=== PATIENT | female | born 2000 | race Caucasian/White ===

== ENCOUNTER → 2020-02-13 16:48 | Outpatient (CLI) | payer BC, SELFPAY ==
[2020-02-13 18:30] LABS: hCG Titer Quant., Serum < 1 mIU/mL (1-3)
[2020-02-13 18:31] LABS: Progesterone Level 0.74 ng/mL (See Comment)
== END ==
PROVIDERS: Visit Provider Obstetrics & Gynecology
DX: N91.2 Amenorrhea, unspecified (principal)
CPT/HCPCS: 36415; 84144; 84702

== ENCOUNTER → 2020-03-12 13:48 | Outpatient (CLI) | payer BC, SELFPAY ==
[2020-03-12 16:05] LABS: Progesterone Level 0.74 ng/mL (See Comment)
[2020-03-12 16:09] LABS: hCG Titer Quant., Serum < 1 mIU/mL (1-3)
== END ==
PROVIDERS: Visit Provider Obstetrics & Gynecology
DX: N91.2 Amenorrhea, unspecified (principal)
CPT/HCPCS: 36415; 84144; 84702

== ENCOUNTER → 2020-04-03 10:04 | Outpatient (CLI) | payer BC, SELFPAY ==
[2020-04-03 10:51] LABS: Glucose 75GTT - Fasting 79 mg/dL (70-99)
[2020-04-03 10:59] LABS: Insulin 75GTT - Fasting 5.9 mU/L (2.6-37.6)
[2020-04-03 11:15] LABS: Estradiol 81.3 pg/mL; Follicle Stimulating Hormone 4.9 mIU/mL; Free T3 2.9 pg/mL (2.18-3.98); Prolactin 8.3 ng/mL; T4 Free Direct 1.04 ng/dL (0.76-1.46); Thyroid Stim Hormone (TSH) 1.94 uIU/mL (0.358-3.74)
[2020-04-03 12:08] LABS: Glucose 75GTT - 30 minutes 126 mg/dL (100-160)
[2020-04-03 12:15] LABS: Glucose 75GTT - 60 minutes 137 mg/dL (100-160)
[2020-04-03 12:21] LABS: Insulin 75GTT - 30 MIN 73.9 mU/L (Not Estab.)
[2020-04-03 12:22] LABS: Insulin 75GTT - 60 min 125.8 mU/L (Not Estab)
[2020-04-03 13:11] LABS: Glucose 75GTT - 120 minutes 107 mg/dL (70-140)
[2020-04-03 13:18] LABS: Insulin 75GTT - 120 min 55.5 mU/L (Not Estab.)
[2020-04-06 20:07] LABS: Thyroid Peroxidase AB < 9 IU/mL (0-34)
[2020-04-06 21:34] LABS: Anti-Thyroglobulin AB < 1.0 IU/mL (0.0-0.9); Sex Hormone-binding Globulin 70.9 nmol/L (24.6-122.0); Thyroglobulin, Serum Qt. 13.8 ng/mL (1.5-38.5)
[2020-04-09 22:43] LABS: 17-Hydroxyprogesterone 43 ng/dL (.)
== END ==
PROVIDERS: PCP Family Medicine; Visit Provider Obstetrics & Gynecology
DX: N92.6 Irregular menstruation, unspecified (principal); E28.8 Other ovarian dysfunction; R73.09 Other abnormal glucose
CPT/HCPCS: 36415; 82306; 82533; 82627; 82670; 82951; 82952; 83001; 83498; 83525; 84146; 84270; 84403; 84432; 84439; 84443; 84481; 86376; 86800; 82626

== ENCOUNTER 2020-09-15 16:42 | Outpatient (RCR) | payer BC, SELFPAY ==
[2020-09-17 12:25] LABS: Progesterone Level 1.96 ng/mL (See Comment); Vitamin D,25 Hydroxy 41.9 ng/mL
[2020-10-21 18:05] LABS: Progesterone Level 34.94 ng/mL (See Comment)
== END 2020-09-15 18:00 | disposition home or self-care (01) ==
LOC: LAB 16:42
PROVIDERS: PCP Family Medicine; Visit Provider Obstetrics & Gynecology
DX: E28.8 Other ovarian dysfunction (principal); E55.9 Vitamin D deficiency, unspecified
CPT/HCPCS: 36415; 82306; 84144

== ENCOUNTER 2020-11-20 16:33 | Outpatient (RCR) | payer BC, SELFPAY | END 2020-11-20 18:00 | disposition home or self-care (01) | LOC: LAB 16:33 | PROVIDERS: PCP Family Medicine; Referring Provider Obstetrics & Gynecology; Visit Provider Obstetrics & Gynecology | DX: E28.8 Other ovarian dysfunction (principal); E55.9 Vitamin D deficiency, unspecified | CPT/HCPCS: 36415; 84144 ==

== ENCOUNTER 2021-07-06 17:01 | Outpatient (CLI) | payer BC, SELFPAY ==
[2021-07-06 17:56] LABS: Hematocrit 42.6 % (37-47); Hemoglobin 13.7 g/dL (12.0-15.0); Mean Corp Hgb Conc 32.2 g/dL (32-36); Mean Corpuscular Hgb 27.7 pg (27.0-32.0); Mean Corpuscular Volume 86.2 fL (81-99); Mean Platelet Vol. 11.7 fl (6.2-12.0); Platelet Count 228 K/mm3 (150-450); RBC Distribution Width CV 12.9 % (11.6-14.6); RBC Distribution Width SD 40.5 fl (35.1-43.9); Red Blood Count 4.94 M/mm3 (4.2-5.4); White Blood Count 10.2 K/mm3 (4.4-11.0)
[2021-07-06 18:14] LABS: Vitamin B12 571 pg/mL (211-911); Vitamin D,25 Hydroxy 25.9 ng/mL
[2021-07-06 19:18] LABS: ALB/GLOB Ratio 1.3 RATIO (0.9-2.4); AST(SGOT) 18 U/L (15-37); Alanine Aminotransfer ALT/SGPT 20 U/L (13-56); Albumin, Serum 4.1 g/dL (3.2-5.0); Alkaline Phosphatase 51 U/L (45-117); Anion Gap 4 (5-15); BUN 17 mg/dL (7-18); BUN/Creat Ratio 20.6 RATIO (10-20); Calcium,Total 9.5 mg/dL (8.5-10.1); Chloride 107 mmol/L (98-107); Cholesterol 168 mg/dL (200); Creatinine, Serum 0.82 mg/dL (0.55-1.02); EST Glomerular Filtration Rate 92 mL/min (>60); Est Glom Filt Rate - Afr Amer 111 mL/min (>60); Free T3 1.5 pg/mL (2.18-3.98); Globulin 3.2 g/dL (2.2-4.2); Glucose 78 mg/dL (74-106); High Density Lipoprotein 45 mg/dL; Potassium 3.7 mmol/L (3.5-5.1); Protein, Total 7.3 g/dL (6.4-8.2); Sodium Level 139 mmol/L (136-145); T4 Free Direct 0.36 ng/dL (0.76-1.46); Triglycerides 115 mg/dL; Very Low Density Lipoprotein 23 mg/dL (5-40)
[2021-07-08 08:25] LABS: Cancer Antigen 125 12.3 U/mL (0.0-38.1); Sex Hormone-binding Globulin 25.3 nmol/L (24.6-122.0)
[2021-07-08 21:07] LABS: Thyroid Peroxidase AB 202 IU/mL (0-34)
[2021-07-09 12:55] LABS: Thyroglobulin Antibody 4.5 IU/mL (0.0-0.9)
[2021-07-10 13:08] LABS: Chlamydia By Nucleic Acid AMP Negative (Negative)
[2021-07-10 19:27] LABS: Gonococcus By Nucleic Acid AMP Negative (Negative)
[2021-07-13 13:57] LABS: HPV Reflexed? NOT INDICATED
== END 2021-07-06 23:59 | disposition home or self-care (01) ==
LOC: WOBLAB 17:02
PROVIDERS: PCP Family Medicine; Visit Provider Obstetrics & Gynecology
DX: R94.6 Abnormal results of thyroid function studies (principal); E28.2 Polycystic ovarian syndrome; N91.5 Oligomenorrhea, unspecified; N83.202 Unspecified ovarian cyst, left side; Z12.4 Encounter for screening for malignant neoplasm of cervix; Z11.3 Encounter for screening for infections with a predominantly sexual mode of transmission
CPT/HCPCS: 36415; 80053; 80061; 82306; 82533; 82607; 82627; 83036; 84144; 84270; 84403; 84439; 84443; 84481; 85027; 86304; 86376; 86800; 87491; 87591; 88175; 82626; G0145

== ENCOUNTER → 2021-08-26 | Outpatient (CLI) | payer BC, SELFPAY ==
[2021-08-26 08:07] LABS: Free T3 2.9 pg/mL (2.18-3.98); T4 Free Direct 0.91 ng/dL (0.76-1.46)
[2021-09-04 13:08] LABS: Anti-Mullerian Hormone,Serum 5.38 ng/mL (.); T3 Reverse 15.3 ng/dL (9.2-24.1)
== END | disposition home or self-care (01) ==
LOC: LAB 06:44
PROVIDERS: PCP Family Medicine; Referring Provider Obstetrics & Gynecology; Visit Provider Obstetrics & Gynecology
DX: E03.9 Hypothyroidism, unspecified (principal)
CPT/HCPCS: 36415; 83516; 84439; 84443; 84481; 84482

== ENCOUNTER → 2023-10-03 | Outpatient (CLI) | payer OTHER, SELFPAY ==
[2023-10-03 13:42] LABS: Free T3 2.5 pg/mL (2.18-3.98); T4 Free Direct 0.98 ng/dL (0.76-1.46); Thyroid Stim Hormone (TSH) 8.69 uIU/mL (0.358-3.74)
== END | disposition home or self-care (01) ==
LOC: LAB 12:21
PROVIDERS: PCP Family Medicine; Referring Provider Registered Nurse; Visit Provider Registered Nurse
DX: N92.6 Irregular menstruation, unspecified (principal); E03.9 Hypothyroidism, unspecified
CPT/HCPCS: 36415; 84439; 84443; 84481